=== PATIENT | female | born 1950 | race Caucasian/White ===

== ENCOUNTER 2019-12-24 17:39 | Emergency (ER) | payer BC ==
[~2019-12-24] VITALS: Ht 162.6 cm; Wt 59.0 kg
[2019-12-24] MEDS ORDERED: HYDROmorphone 1mg/ml Carpuject IVP ONE (17:45)
[2019-12-24 17:50] VITALS: BP 161/86
[2019-12-24] MEDS ORDERED: BACLOFEN10 MG ORAL (17:55)
[2019-12-24] MEDS ORDERED: ATORVASTATIN CA80 MG ORAL (17:55)
[2019-12-24] MEDS ORDERED: TIZANIDINE HCL4 MG ORAL (17:55)
[2019-12-24] MEDS ORDERED: NITROFURANTOIN100 M2 ORAL (17:55)
[2019-12-24] MEDS ORDERED: NEURONTIN800 MG ORAL (17:55)
[2019-12-24] MEDS ORDERED: METFORMIN HCL500 M1 ORAL (17:55)
[2019-12-24] MEDS ORDERED: AMITRIPTYLINE75 MG ORAL (17:55)
[2019-12-24] MEDS ORDERED: ROBAXIN-500MG ORAL (17:55)
[2019-12-24] MEDS ORDERED: TYLENOL EXTRA500 MG ORAL (17:55)
--- NOTE | 2019-12-24 18:00 | NUR ---
ED Nurse Note: bibyris with complin of right ankle pain, states pain is 7/10 with slight swelling on the medial side. patient states she fell from cough during her sleep. she is talkative and alert to name, remains on room air with saturations of 96% an not distress. seen by physician at the bedside,
--- NOTE | 2019-12-24 18:20 | Emergency Room Report ---
History of Present Illness General Chief Complaint: Multiple Trauma/Fall Source: Patient, Family Member, Caregiver Present Illness HPI Wednesday night the patient was found by her . Apparently she slipped on off the couch and her right foot was caught between the couch and wheelchair. She has had continued pain there. She rates the pain 8/10 at this time and constant. It is the foot and ankle radiates up into the calf and hip area. She says she has not taken any medication for pain. She feels the foot is dangling. The patient has not been eating well. She denies any chest pain, nausea, vomiting or diarrhea. She has to have urinary catheterization. She denies dysuria. She has a correctional program officer this with her. The patient is wheelchair-bound due to weakness and stiffness in her right leg. The patient denies any exposure to COVID-19 positive contacts. The patient has a history of multiple sclerosis. Apparently this presented with right hip and leg weakness and pain many years ago. She is not taking medication for this at this time. Approximately 7 years ago she did use Dilaudid orally to control pain. She is not taken any recently. When confronted with increased heart rate she says she is anxious and in pain. No fevers, chills, sore throat, chest pain, palpitations, nausea, vomiting, diarrhea, abdominal pain, shortness of breath, rashes, depression, anxiety, visual changes, dizziness, headache. Allergies: Coded Allergies: METHYLPREDNISOLONE (Verified Allergy, Intermediate, 12/24/19) SILVER (Verified Allergy, Intermediate, 12/24/19) Uncoded Allergies: SHELL FISH (Allergy, Intermediate, 12/24/19) COVID-19 Screening Contact w/high risk pt: No Experienced COVID-19 symptoms?: No COVID-19 Testing performed CONTAINER FINISHING INSPECTOR: No Patient History Past Medical History: see triage record Social History: Denies: smoking, alcohol use, drug use Social History Narrative Has a correctional program officer, Now: No Reviewed Nursing Documentation: PMH: Agreed; PSxH: Agreed Review of Systems All Other Systems: negative except mentioned in HPI Physical Exam Vital Signs Date Time Temp Pulse Resp B/P (MAP) Pulse Ox O2 Delivery O2 Flow Rate FiO2 12/24/19 17:30 99.0 98 18 164/98 (120) 99 Room Air Sp02 EP Interpretation: reviewed, normal General Appearance: well appearing, no apparent distress, GCS 15 Head: normocephalic Eyes: bilateral eye normal inspection, bilateral eye PERRL, bilateral eye EOMI ENT: moist mucus membranes - Slightly dry Neck: supple Respiratory: lungs clear, normal breath sounds Cardiovascular #1: no edema, tachycardia Cardiovascular #2: 2+ radial (R), 2+ dorsalis pedis (R) Gastrointestinal: normal inspection, normal bowel sounds, non tender, no mass, non-distended Genitourinary: no CVA tenderness Musculoskeletal: back normal, tender - Right ankle and foot, swelling - Right ankle and foot, other - Extensor contracture right ankle Neurologic: alert, stereotype finisher III-XII nml as tested, DTRs symmetric, oriented x3, sensory intact, motor weakness - Lower extremities, more on right with increased tone Psychiatric: mood/affect normal - she says she is anxious Skin: no rash, warm/dry Medical Decision Making Diagnostic Impression: Primary Impression: Ankle fracture, right Qualified Codes: S82.891A - Other fracture of right lower leg, initial encounter for closed fracture Additional Impressions: Tachycardia Multiple sclerosis ER Course Patient presents with right ankle and foot pain post fall. She also has history of multiple sclerosis and presents with tachycardia. Differential includes fracture, sprain and contusion. X-rays are indicated for the ankle and foot. The fact he is quite tachycardic initially requires investigation also. Considerations are sepsis, urinary tract infection, dehydration, arrhythmia, acute myocardial infarction amongst others. She has difficulty describing what happened although there is no history of seizures in the past. Patient is placed on a bus monitor. IV hydration administered. Also patient is treated for pain. EKG sinus tachycardia with left atrial enlargement nonspecific ST-T wave changes. CBC and CMP essentially unremarkable aside from low potassium. Chest x-ray clear. Right ankle with medial malleolus fracture. Foot x-ray read as normal. Potassium ordered. Some delay in obtaining cath specimen as patient refused our In-N-Out cath. performed. Urinalysis returns clear. Patient improved with Dilaudid but still 7/10 pain. Posterior splint applied by power plant technician. Position excellent given the patient has contractures. Distal neurovascular baseline for patient as checked by me. Still with pain in Dilaudid repeated with improvement. Discussed findings and treatment plan with patient, and correctional program officer. Tachycardia resolved with IV hydration. Cause most likely multifactorial. Patient stable for outpatient observation and treatment. Laboratory Tests Test 12/24/19 18:30 12/24/19 19:43 White Blood Count 9.9 K/UL (4.8-10.8) Red Blood Count 4.53 M/UL (4.20-5.40) Hemoglobin 14.3 G/DL (12.0-16.0) Hematocrit 41.9 % (37.0-47.0) Mean Corpuscular Volume 93 FL (80-99) Mean Corpuscular Hemoglobin 31.7 PG (27.0-31.0) H Mean Corpuscular Hemoglobin Concent 34.2 G/DL (32.0-36.0) Red Cell Distribution Width 12.0 % (11.6-14.8) Platelet Count 273 K/UL (150-450) Mean Platelet Volume 7.1 FL (6.5-10.1) Neutrophils (%) (Auto) 66.4 % (45.0-75.0) Lymphocytes (%) (Auto) 21.8 % (20.0-45.0) Monocytes (%) (Auto) 9.2 % (1.0-10.0) Eosinophils (%) (Auto) 1.6 % (0.0-3.0) Basophils (%) (Auto) 0.9 % (0.0-2.0) Erythrocyte Sedimentation Rate 45 MM/HR (0-30) H Prothrombin Time 11.3 SEC (9.30-11.50) Prothrombin Time INR 1.0 (0.9-1.1) Activated Partial Thromboplast Time 25 SEC (23-33) Sodium Level 142 MMOL/L (136-145) Potassium Level 3.3 MMOL/L (3.5-5.1) L Chloride Level 105 MMOL/L (98-107) Carbon Dioxide Level 31 MMOL/L (21-32) Anion Gap 6 mmol/L (5-15) Blood Urea Nitrogen 11 mg/dL (7-18) Creatinine 0.9 MG/DL (0.55-1.30) Estimated Glomerular Filtration Rate > 60 mL/min (>60) Glucose Level 104 MG/DL (74-106) Lactic Acid Level 1.30 mmol/L (0.4-2.0) Calcium Level 11.1 MG/DL (8.5-10.1) H Total Bilirubin 0.6 MG/DL (0.2-1.0) Aspartate Amino Transferase (AST) 21 U/L (15-37) Alanine Aminotransferase (ALT) 33 U/L (12-78) Alkaline Phosphatase 91 U/L (46-116) C-Reactive Protein, Quantitative 6.1 mg/dL (0.00-0.90) H Total Protein 6.9 G/DL (6.4-8.2) Albumin 4.0 G/DL (3.4-5.0) Globulin 2.9 g/dL Albumin/Globulin Ratio 1.4 (1.0-2.7) Urine Color Yellow Urine Appearance Clear Urine pH 6.5 (4.5-8.0) Urine Specific [place] 1.015 (1.005-1.035) Urine Protein 1+ (NEGATIVE) H Urine Glucose (UA) Negative (NEGATIVE) Urine Ketones 3+ (NEGATIVE) H Urine Blood Negative (NEGATIVE) Urine Nitrite Negative (NEGATIVE) Urine Bilirubin Negative (NEGATIVE) Urine Urobilinogen Normal MG/DL (0.0-1.0) Urine Leukocyte Esterase 1+ (NEGATIVE) H Urine RBC 0-2 /HPF (0 - 2) Urine WBC 0-2 /HPF (0 - 2) Urine Squamous Epithelial Cells Occasional /LPF Urine Bacteria Occasional /HPF (NONE) EKG Diagnostic Results Rate: tachycardiac Rhythm: NSR ST Segments: no acute changes Rhythm Strip Diag. Results EP Interpretation: yes Rhythm: no PVC's, no ectopy, other - Sinus tachycardia Chest X-Ray Diagnostic Results Chest X-Ray Diagnostic Results : Chest X-Ray Ordered: Yes # of Views/Limited/Complete: 1 View Indication: Other EP Interpretation: Yes Interpretation: no consolidation, no effusion, no pneumothorax, other - Scoliosis and increased bowel loops in stool Impression: Other Electronically Signed by: Electronically signed by Nikolas Klein MD Other X-Ray Diagnostic Results Other X-Ray Diagnostic Results #1: X-Ray ordered: Left ankle # of Views/Limited Vs Complete: 3 View Indication: Other EP Interpretation: Yes Interpretation: no dislocation, other - Soft tissue swelling and fracture of the medial malleolus Impression: Other Electronically Signed by: Electronically signed by Nikolas Klein MD Other X-Ray Diagnostic Results #2: # of Views/Limited Vs Complete: 3 View Indication: Other EP Interpretation: Yes Interpretation: no fractures, other - Possible Lisfranc dislocation Impression: Other Electronically Signed by: Electronically signed by Nikolas Klein MD Last Vital Signs Date Time Temp Pulse Resp B/P (MAP) Pulse Ox O2 Delivery O2 Flow Rate FiO2 12/24/19 21:30 98.9 90 18 138/85 97 Room Air Status: improved Disposition: HOME, SELF-CARE Condition: Improved Scripts Ibuprofen* (MOTRIN*) 600 Mg Tablet 600 MG ORAL Q6H PRN for FOR PAIN, #20 TAB 0 Refills Prov: Nikolas Klein MD 12/24/19 Hydrocodone Bit/Acetaminophen 5-325* (NORCO 5-325 TABLET*) 1 Each Tablet 1 TAB ORAL Q6H PRN for FOR PAIN, #10 TAB 0 Refills Prov: Nikolas Klein MD 12/24/19 Referrals: NON PHYSICIAN (PCP) Nikolas Klein MD Dec 24, 2019 18:20
--- NOTE | 2019-12-24 18:27 | Diagnostic Imaging Report ---
EXAM: XR Right Foot Complete, 3 or More Views CLINICAL HISTORY: TRAUMA TECHNIQUE: Frontal, lateral and oblique views of the right foot. COMPARISON: No relevant prior studies available. FINDINGS: Bones/joints: Osteopenia. No fracture or malalignment. Os peroneum. Soft tissues: Unremarkable. No radiopaque foreign body. IMPRESSION: No fracture or malalignment.
--- NOTE | 2019-12-24 18:41 | Diagnostic Imaging Report ---
EXAM: XR Right Ankle Complete, 3 or More Views CLINICAL HISTORY: TRAUMA TECHNIQUE: Frontal, lateral and oblique views of the right ankle. COMPARISON: No relevant prior studies available. FINDINGS: Bones/joints: Lucency in the medial malleolus. No other fracture identified. Ankle mortise is symmetric and the talar dome is intact. Soft tissues: Mild soft tissue edema laterally. IMPRESSION: 1. Lucency in the medial malleolus. Potentially a nondisplaced fracture however there is no overlying edema. Correlate for point tenderness. 2. Mild soft tissue edema laterally.
--- NOTE | 2019-12-24 18:43 | Diagnostic Imaging Report ---
EXAM: XR Chest, 1 View CLINICAL HISTORY: TRAUMA TECHNIQUE: Frontal view of the chest. COMPARISON: No relevant prior studies available. FINDINGS: Lungs: Unremarkable. No consolidation. Pleural space: No pleural effusion. No pneumothorax. Heart: Unremarkable. No cardiomegaly. Bones/joints: Dextrocurvature in the spine. Upper abdomen: Elevated right hemidiaphragm. IMPRESSION: 1. No radiographically evident traumatic injury. 2. Elevated right hemidiaphragm.
[2019-12-24 18:47] LABS: BASOPHILS % (AUTO) 0.9 % (0.0-2.0); EOSINOPHILS % (AUTO) 1.6 % (0.0-3.0); HEMATOCRIT 41.9 % (37.0-47.0); HEMOGLOBIN 14.3 G/DL (12.0-16.0); LYMPHOCYTES % (AUTO) 21.8 % (20.0-45.0); MEAN CORPUSCULAR VOLUME 93 FL (80-99); MONOCYTES % (AUTO) 9.2 % (1.0-10.0); NEUTROPHILS % (AUTO) 66.4 % (45.0-75.0); PLATELET COUNT 273 K/UL (150-450); RED BLOOD COUNT 4.53 M/UL (4.20-5.40); WHITE BLOOD COUNT 9.9 K/UL (4.8-10.8)
[2019-12-24 18:56] LABS: ANION GAP 6 mmol/L (5-15); BLOOD UREA NITROGEN 11 mg/dL (7-18); CALCIUM 11.1 MG/DL (8.5-10.1); CARBON DIOXIDE 31 MMOL/L (21-32); CHLORIDE 105 MMOL/L (98-107); CREATININE 0.9 MG/DL (0.55-1.30); POTASSIUM 3.3 MMOL/L (3.5-5.1); SODIUM 142 MMOL/L (136-145)
[2019-12-24 19:00] LABS: ALANINE AMINOTRANSFERASE 33 U/L (12-78); ALBUMIN/GLOBULIN RATIO 1.4 (1.0-2.7); ALKALINE PHOSPHATASE 91 U/L (46-116); ASPARTATE AMINO TRANSFERASE 21 U/L (15-37); BILIRUBIN,TOTAL 0.6 MG/DL (0.2-1.0)
--- NOTE | 2019-12-24 19:11 | NUR ---
HAND-OFF: Report given to REMY Sharp. Patient is talkative and alert. states pain is at 8/10 after 1mg of dilaudid given. Left forearm 20 G iv is patent and infusing saline.
--- NOTE | 2019-12-24 19:15 | NUR ---
ED Nurse Note: Report received from REMY Connor. Patient is awake and alert. Will cont. to monitor.
--- NOTE | 2019-12-24 19:45 | NUR ---
ED Nurse Note: Urine sample obtained via straight cath and sent to lab.
--- NOTE | 2019-12-24 20:10 | NUR ---
ED Nurse Note: system technologist bedside for splint application.
[2019-12-24 20:16] LABS: APPEARANCE,URINE CLEAR; BILIRUBIN, URINE NEGATIVE (NEGATIVE); GLUCOSE, URINE (UA) NEGATIVE (NEGATIVE); KETONES,URINE 3+ (NEGATIVE); LEUKOCYTE ESTERASE ,URINE 1+ (NEGATIVE); NITRITE,URINE NEGATIVE (NEGATIVE); PH,URINE 6.5 (4.5-8.0); PROTEIN,URINE 1+ (NEGATIVE); UROBILINOGEN,URINE NORMAL MG/DL (0.0-1.0)
[2019-12-24 20:17] LABS: COLOR,URINE YELLOW
[2019-12-24] MEDS ORDERED: Hydromorphone 0.5mg/0.5ml inj IVP ONE (21:00)
[2019-12-24] MEDS ORDERED: IBUPROFEN600 M1 ORAL (21:04)
[2019-12-24] MEDS ORDERED: NORCO 5-325 TA1 EAC1 ORAL (21:04)
[2019-12-24 21:30] VITALS: BP 138/85
--- NOTE | 2019-12-24 21:30 | NUR ---
ER DISCHARGE NOTE: Patient is cleared to be discharged per ERMD, pt is aox4, on room air, with stable vital signs. pt was given dc and prescription instructions, pt was able to verbalize understanding, pt id band and iv site removed without complications. pt assisted into wheelchair and then into private vehicle with help by tech and RN. Patient left with all belongings.
--- NOTE | 2019-12-27 20:55 | Cardiology Report ---
APPROVED REPORT EKG Measurement Heart [id number] <Conclusion> Sinus tachycardia Possible Left atrial enlargement Nonspecific ST and T wave abnormality Abnormal ECG
== END 2019-12-24 21:30 | disposition home or self-care (01) ==
LOC: EDBD 17:39 → EMR 17:55
DX: S82.891A Other fracture of right lower leg, initial encounter for closed fracture (principal); R00.0 Tachycardia, unspecified; G35 Multiple sclerosis; W01.0XXA Fall on same level from slipping, tripping and stumbling without subsequent striking against object, initial encounter; Y92.9 Unspecified place or not applicable; Z99.3 Dependence on wheelchair; Z91.013 Allergy to seafood; Z88.8 Allergy status to other drugs, medicaments and biological substances; M85.871 Other specified disorders of bone density and structure, right ankle and foot
CPT/HCPCS: 29515; 36415; 51701; 71045; 73610; 73630; 80053; 81001; 83605; 85025; 85610; 85651; 85730; 86140; 93005; 96361; 96374; 96375; 96376; 99284; J1170; J2405; J7030; J8499